=== PATIENT | male | born 1990 | race Caucasian/White ===

== ENCOUNTER 2023-10-23 23:02 | Emergency (ER) | payer SELFPAY ==
[2023-10-24] MEDS ORDERED: Boostrix 0.5 ML (Tdap) VIAL (>/=7 yrs of age) ONE (00:49)
[2023-10-24] MEDS ORDERED: Lidocaine 1% PF 5 ML VIAL ONE (00:55)
[2023-10-24] MEDS ORDERED: Bacitracin 1 PK ONE (01:28)
== END 2023-10-24 01:43 | disposition home or self-care (01) ==
LOC: CSHERS 23:02
DX: S61.210A Laceration without foreign body of right index finger without damage to nail, initial encounter (principal); F17.210 Nicotine dependence, cigarettes, uncomplicated; F17.290 Nicotine dependence, other tobacco product, uncomplicated; Z23 Encounter for immunization; W25.XXXA Contact with sharp glass, initial encounter
CPT/HCPCS: 12001; 90471; 90715